=== PATIENT | male | born 1950 | race Caucasian/White ===

== ENCOUNTER 2016-11-20 10:07 | Inpatient (IN) | payer MEDICARE, MEDICAID ==
[2016-11-20 11:03] LABS: Anion Gap 12 mmol/L (-14-95); T. Carbon Dioxide 26.5 mmol/L (1.0-85.0); pH (Venous) 7.413 (7.35-7.45); vO2 Saturation-calc 58.6 % (0.0-100.0)
[2016-11-20 11:07] LABS: #Lymphocytes 1.2 thou/uL (1.20-3.40); #Monocytes 0.8 thou/uL (0.11-0.59); #Neutrophils 7.6 thou/uL (1.40-6.50); %Basophils 0.1 % (0.0-1.0); %Eosinophils 0.3 % (0.0-10.0); %Lymphocytes 12.8 % (21.0-51.0); Mean Platelet Volume 9.1 fL (7.4-10.4); Red Blood Cell (RBC) Count 4.66 mill/uL (4.70-6.10); White Blood Cell (WBC) Count 9.7 thou/uL (4.8-10.8)
[2016-11-20] MEDS ORDERED: Heparin 1,000 UNITS/ML VIAL ONE (11:11)
[2016-11-20] MEDS ORDERED: Piperacillin/Tazobactam 4.5 GM VIAL ONE ×2 (11:14→11:18)
[2016-11-20 11:23] LABS: Lactic Acid - Sepsis 2.5 mmol/L (0.5-2.2)
--- NOTE | 2016-11-20 11:25 | RAD ---
PORTABLE CHEST 1 VIEW: DATE: 11/20/16. TIME: 10:25 a.m. HISTORY: Dyspnea. FINDINGS: Comparison is made with the exam of 05/15/15. The heart size is normal. The aorta is tortuous. Increased prominence of the interstitial markings in the right lung base. This may represent a developing infiltrate. No pneumothorax, lobar consol idation, or pleural effusions are seen. POS: [facility]
[2016-11-20 11:27] LABS: ALT (SGPT) Less than 7 U/L (8-55); AST (SGOT) 6 U/L (5-34); Alkaline Phosphatase 66 U/L (40-150); Anion Gap 17 mmol/L (10-20); BUN (Urea Nitrogen) 38 mg/dL (8.4-25.7); Bilirubin, Total 0.6 mg/dL (0.2-1.2); Calc. Creatinine Clearance 0 mL/min (70-130); Calcium 9.9 mg/dL (7.8-10.44); Carbon Dioxide 25 mmol/L (23-31); Chloride 117 mmol/L (98-107); Estimated GFR-MDRD Greater than 90; Globulin 4.1 g/dL (2.4-3.5); Protein, Total 8.1 g/dL (5.8-8.1)
[2016-11-20 12:39] LABS: Bilirubin Small (Negative); Blood, Urine Negative (Negative); Glucose, Urine (Dipstick) Negative (Negative); Ketone, Urine 15 mg/dL (Negative)
[2016-11-20 12:40] LABS: Nitrite Negative (Negative); Protein, Urine (Dipstick) 100 mg/dL (Neg-Trace)
[2016-11-20 12:58] LABS: Bacteria/HPF None Seen HPF (None Seen)
[2016-11-20 13:09] LABS: Hyaline Casts/LPF 7-10 HYALINE CAST LPF (0-3 Hyaline); Renal Epithelial 0-3 HPF (0-3); Transitional Epithelial 0-3 HPF (0-3)
[2016-11-20 13:59] VITALS: BMI 17.6
[2016-11-20] MEDS ORDERED: Sodium Chloride 0.9% 1,000 ML IV SCH (13:59)
[2016-11-20] MEDS ORDERED: Ondansetron ODT 4 MG TAB SL PRN (13:59)
[2016-11-20] MEDS ORDERED: Ondansetron HCl/PF 4 MG/2 ML Vial IVP PRN (13:59)
[2016-11-20] MEDS ORDERED: Vancomycin HCl 1 GM in Premix Bag 1 BAG IVPB SCH (15:00)
[2016-11-20] MEDS ORDERED: Acetaminophen 325 MG TAB PO PRN (18:45)
[2016-11-20] MEDS: Sodium Chloride 0.9% 1,000 ML IV SCH (20:49)
[2016-11-20] MEDS: Lisinopril 10 MG TAB PO SCH (20:50)
[2016-11-20] MEDS: guaiFENesin ER 600 MG TAB PO SCH (20:50)
[2016-11-20] MEDS: Donepezil HCl 10 MG TAB PO SCH (20:50)
[2016-11-20] MEDS: Carbidopa/Levodopa 10-100 mg Tablet PO SCH (20:50)
[2016-11-20] MEDS: Pravastatin Sodium 20 MG TAB PO SCH (20:50)
[2016-11-21] MEDS: Sodium Chloride 0.9% 1,000 ML IV SCH ×2 (05:05→14:32)
[2016-11-21] MEDS: Vancomycin HCl 1 GM in Premix Bag 1 BAG IVPB SCH ×2 (05:05→17:39)
[2016-11-21 05:31] LABS: Anion Gap 13 mmol/L (10-20); BUN (Urea Nitrogen) 23 mg/dL (8.4-25.7); Calc. Creatinine Clearance 108 mL/min (70-130); Calcium 8.5 mg/dL (7.8-10.44); Carbon Dioxide 20 mmol/L (23-31); Chloride 116 mmol/L (98-107); Estimated GFR-MDRD Greater than 90
--- NOTE | 2016-11-21 05:50 | HP ---
DATE OF ADMISSION: 11/20/2016 CHIEF COMPLAINT ON ADMISSION: Pneumonia. HISTORY OF PRESENT ILLNESS: The patient is a 66-[facility]-old [facility] patient who has [facility] present at that [facility] for several years since his CVA. He was noted to have increasing lethargy, a t emperature up to 100, and a lot of chest congestion with a wet cough. When he was sent to the emerg ency room for further evaluation in the ER, a chest x-ray revealed an infiltrate, and even though th e patient said his baseline function elsewhere, he is being admitted for fpc-acquired pneum onia. There has been no nausea, vomiting, diarrhea, no temperature over a 100, without distress acc ording to the who is the historian. PAST MEDICAL HISTORY: Significant for the aforementioned CVA. He also has a history of hyperlipide darrion, hypertension, dementia with confusion, weakness on the right side since the stroke, COPD, insom sahra, arthritis, vitamin D deficiency, possible bipolar disorder, and anorexia. He also has anxiety associated with bipolar depression. PAST SURGICAL HISTORY: Includes right shoulder surgery, right ankle surgery. PAST PSYCHIATRIC HISTORY: As mentioned previously, bipolar disorder, depression prevalent with time frames that may also have schizophreniform features. He also has anxiety. SOCIAL HISTORY: He has been a daily alcohol drinker with severe tremors in the past due to previous alcohol use. There has been no recent alcohol use. He is a former drug user, mainly marijuana and he currently still uses 6 to 8 cigarettes a day. ALLERGIES: The patient has no known drug allergies. MEDICATIONS: On admission include lisinopril 20 mg a day, Aricept 10 mg at bedtime, Namenda 10 mg b .i.d., pravastatin 20 mg at bedtime, oxcarbazepine 300 mg b.i.d., Tylenol 325 mg q. 6 hours p.r.n. p ain or temperature elevation, Zoloft 200 mg q. day, Seroquel 200 mg at bedtime, Depakote 125 mg 8 ca psules once at bedtime, Sinemet 10/100 one t.i.d., Megace to stimulate his appetite and vitamin D2 5 0,000 units biweekly. REVIEW OF SYSTEMS: General: Hard to obtain due to the patient's inability to communicate. General ly, there has been increased lethargy and decreased responsiveness. HEENT: No new findings or trauma. Eyes, Nose, Throat: No new lesions, drainage, or pain. NECK: Supple, no masses, diminished range of motion. Chest: With loud, wet cough. No pain with inspirat ion, nontender to palpation. Heart: Regular rate and rhythm. There has been no palpitations or ch est pain identified. Abdomen: Scaphoid, unable to appreciate organomegaly. As previously mentione d, no vomiting or diarrhea. Genitourinary: Deferred. Extremities: With muscular wasting in upper and lower extremities and diminished range of motion noted especially on the right. Neurologic: Augustus evangelista is an alert and responsive at this time giving only short word answers and no trouble with faintin g. Skin: No new rashes. Genitourinary: No blood in urine or stool has been noted. PHYSICAL EXAMINATION: VITAL SIGNS: At the time of admission, blood pressure is 120/74, pulse is 86, respirations 14, temp erature 99, unable to appreciate pain scale at this time, O2 sat at 100%. GENERAL: This is a disabled, cachectic, elderly male with diminished responsiveness but is able to respond when addressed directly. HEENT: Significant for temporal wasting. Pupils equal, round, and reactive to light. TMs and nare s clear. Pharynx with poor dentition. Skin exfoliated in scalp and face. NECK: Supple. CHEST: With diminished breath sounds on the right. HEART: Regular rate and rhythm. ABDOMEN: Scaphoid with slight hepatomegaly. GENITOURINARY: Deferred. EXTREMITIES: Without clubbing or cyanosis. There is diminished muscular tone and development and l imited range of motion mainly on the right lower extremities. SKIN: Without acute rashes or lesions, although there has been no recent bathing and lot of dandruf f and skin sloughing. NEUROLOGIC: Diminished use of the right side upper and lower extremities. Diminished mentation, so me CVA. Deep tendon reflexes are hyperreflexic on the right and normal one on the left. Unable to appreciate any sensory exam at this time. LABORATORY WORK: WBC 9.4, hemoglobin 15.5, hematocrit 46.7, platelets 176. The UA is significant f or small ketones, otherwise, unremarkable. Remainder of his chest x-ray and lab evaluation is not a vailable due to the computer system being down. ASSESSMENT: 1. custodial-acquired pneumonia. 2. Mild dehydration. 3. Status post left hemispheric cerebrovascular accident with right-sided weakness in upper and low er extremities. 4. Significant psychiatric disorders - multiple. PLAN: IV antibiotics, scheduled neb treatments, mucolytics, and serial reevaluation.
[2016-11-21 06:02] LABS: #Lymphocytes 0.9 thou/uL (1.20-3.40); #Monocytes 0.5 thou/uL (0.11-0.59); #Neutrophils 6.1 thou/uL (1.40-6.50); %Basophils 0.1 % (0.0-1.0); %Eosinophils 0.5 % (0.0-10.0); %Lymphocytes 11.9 % (21.0-51.0); Hematocrit 39.5 % (42.0-52.0); Red Blood Cell (RBC) Count 3.73 mill/uL (4.70-6.10); White Blood Cell (WBC) Count 7.5 thou/uL (4.8-10.8)
[2016-11-21] MEDS: Carbidopa/Levodopa 10-100 mg Tablet PO SCH ×3 (08:10→21:50)
[2016-11-21] MEDS: Multivit, Therapeutic 1 TAB PO SCH (08:10)
[2016-11-21] MEDS: Lisinopril 10 MG TAB PO SCH ×2 (08:11→21:37)
[2016-11-21] MEDS: guaiFENesin ER 600 MG TAB PO SCH ×2 (08:11→21:38)
--- NOTE | 2016-11-21 08:14 | PRG ---
DATE OF SERVICE: 11/21/2016 SUBJECTIVE: The patient is awake, he is slightly confused. No family here at bedside. PHYSICAL EXAMINATION: VITAL SIGNS: Upon evaluation, blood pressure 134/70, pulse 70, respiration rate 18, he is afebrile. NECK: Supple with no increased JVP or carotid bruit. Carotid had good upstroke with no thyromegaly . COR: Regular rate and rhythm. CHEST: A few crackles. ABDOMEN: Soft, nontender with normoactive bowel sounds. No bruit or organomegaly. EXTREMITIES: No edema or cyanosis. Palpable pedal pulses. SKIN: There is no evidence of ulcer, lesion, or rash. NEUROLOGIC: He is awake, but slightly confused. LABORATORY DATA: H\T\H is 13.2 and 39.5, white cell blood count is 7.5. His potassium is 3. ASSESSMENT: 1. Pneumonia. 2. Hypokalemia. 3. Dementia. 4. History of cerebrovascular accident. 5. Chronic obstructive pulmonary disease. 6. Hypertension. PLAN: 1. We will go ahead and replace potassium. 2. We will continue IV fluids. 3. We will check a CBC and CMP and chest x-ray in the morning. 4. We will continue antibiotics as well.
[2016-11-21] MEDS ORDERED: Potassium Chloride 20 MEQ in Premix Bag 1 BAG IVPB SCH (08:30)
--- NOTE | 2016-11-21 14:38 | PQF ---
CLINICAL DOCUMENTATION IMPROVEMENT CLARIFICATION FORM: ICD-10 Updated PLEASE DO AN ADDENDUM TO THE PROGRESS NOTE WITH ANY DOCUMENTATION UPDATES OR ADDITIONS AND CARRY THROUGH TO DC SUMMARY. THANK YOU. DATE: 11/21 ATTN: DR. SHAMA SPICER Please exercise your independent, professional judgment in responding to the clarification form. Clinical indicators are provided on the bottom of this form for your review. For continuity of documentation, please document condition throughout progress notes and discharge summary. Thank you. Please check appropriate box(s): [ ] Hypernatremia (please specify etiology, if known) [ ] Diabetes Insipidus [ ] Other diagnosis [ x ] Unable to determine The following CLINICAL INDICATORS - SIGNS / SYMPTOMS are present in the medical record: SODIUM: 155 (11/20) 146 (11/21) RISK: DEHYDRATION PNEUMONIA DEMENTIA TREATMENT IVF (NS 11/20 - PRESENT) SERIAL LAB (COMP MET) THANK YOU! Sue (This form is maintained as a part of the permanent medical record) 2014 [employer]. All Rights Reserved Sue Murillo RN, BSN [email or web address] Office: [phone] [facility]
--- NOTE | 2016-11-21 14:49 | PQF ---
CLINICAL DOCUMENTATION IMPROVEMENT CLARIFICATION FORM: ICD-10 Updated PLEASE DO AN ADDENDUM TO THE PROGRESS NOTE WITH ANY DOCUMENTATION UPDATES OR ADDITIONS AND CARRY THROUGH TO DC SUMMARY. THANK YOU. DATE: 11/21 ATTN: DR. SHAMA SPICER Please provide a response below if a more specific term indicating a diagnosis and/or acuity level for this condition can be identified. Please exercise your independent, professional judgment in responding to the clarification form. Please check appropriate box(s): [ ] Aspiration Pneumonia [ ] Empirically treating Gram Negative Pneumonia [ ] Empirically treating Anaerobic Pneumonia [ ] Pneumonia secondary to (specify organism / underlying disease) [ ] Bronchopneumonia [ ] Pneumonia of unknown etiology [ x ] Other diagnosis ____pneumonia, halfway acquired [ ] Unable to determine The following CLINICAL INDICATORS - SIGNS / SYMPTOMS are present in the medical record: PHYSICIAN H&P DOCUMENTATION 11/20: ASSESSMENT: SHELTER-ACQUIRED PNEUMONIA PROGRESS NOTE 11/21 - ASSESSMENT: 1. PNEUMONIA CXR 11/20: INCREASED PROMINENCE OF THE INTERSTITIAL MARKINGS IN THE R LUNG BASE. THIS MAY REPRESENT A DEVELOPING INFILTRATE. RISKS: DEMENTIA COPD CURRENT TOBACCO USE TREATMENTS: IV ANTIBIOTICS (LEVAQUIN BEGINNING 11/21; VANCOMYCIN 11/20 - PRESENT) SPEECH CONSULT THANK YOU! Sue (This form is maintained as a part of the permanent medical record) 2015 [employer]. All Rights Reserved Sue Murillo RN, BSN [email or web address] Office: [phone] [facility]
[2016-11-21] MEDS: Donepezil HCl 10 MG TAB PO SCH (21:37)
[2016-11-21] MEDS: Pravastatin Sodium 20 MG TAB PO SCH (21:38)
[2016-11-22] MEDS: Sodium Chloride 0.9% 1,000 ML IV SCH (00:10)
[2016-11-22 05:52] LABS: #Eosinphils 0.1 thou/uL (0.0-0.7); #Monocytes 0.6 thou/uL (0.11-0.59); #Neutrophils 5.1 thou/uL (1.40-6.50); %Basophils 0.3 % (0.0-1.0); %Eosinophils 1.2 % (0.0-10.0); %Lymphocytes 14.8 % (21.0-51.0); %Monocytes 8.8 % (0.0-10.0); Hematocrit 37.8 % (42.0-52.0); Mean Platelet Volume 9.7 fL (7.4-10.4); Red Blood Cell (RBC) Count 3.49 mill/uL (4.70-6.10); White Blood Cell (WBC) Count 6.8 thou/uL (4.8-10.8)
[2016-11-22] MEDS: Vancomycin HCl 1 GM in Premix Bag 1 BAG IVPB SCH ×3 (06:04→22:10)
[2016-11-22 06:17] LABS: Vancomycin, Trough 9.3 ug/mL
[2016-11-22 06:22] LABS: ALT (SGPT) 8 U/L (8-55); AST (SGOT) 21 U/L (5-34); Alkaline Phosphatase 46 U/L (40-150); Anion Gap 11 mmol/L (10-20); BUN (Urea Nitrogen) 14 mg/dL (8.4-25.7); Bilirubin, Total 0.5 mg/dL (0.2-1.2); Calc. Creatinine Clearance 108 mL/min (70-130); Calcium 8.1 mg/dL (7.8-10.44); Carbon Dioxide 20 mmol/L (23-31); Chloride 115 mmol/L (98-107); Estimated GFR-MDRD Greater than 90; Globulin 2.7 g/dL (2.4-3.5); Protein, Total 5.4 g/dL (5.8-8.1)
[2016-11-22] MEDS ORDERED: Potassium Chloride 20 MEQ TAB PO SCH ×2 (06:30→08:15)
[2016-11-22] MEDS ORDERED: NS 0.9% w/ 20 MEQ KCL 1,000 ML IV SCH (06:45)
[2016-11-22] MEDS ORDERED: Sodium Chloride 0.9% 1,000 ML IV SCH (08:00)
--- NOTE | 2016-11-22 08:12 | RAD ---
SINGLE VIEW OF THE CHEST: Comparison: 11-20-16 History: Pneumonia. FINDINGS: Single view of the chest shows a normal sized cardiomediastinal silhouette. There is an infiltrate a long the right heart border. No left sided infiltrates are seen. No pleural effusion is seen. IMPRESSION: Right sided infiltrate. This may be in the right middle lobe or lower lobe. POS: [facility]
[2016-11-22] MEDS: NS 0.9% w/ 20 MEQ KCL 1,000 ML IV SCH ×2 (08:56→18:23)
[2016-11-22] MEDS: Multivit, Therapeutic 1 TAB PO SCH (09:05)
[2016-11-22] MEDS: guaiFENesin ER 600 MG TAB PO SCH ×2 (09:05→22:10)
[2016-11-22] MEDS: Lisinopril 10 MG TAB PO SCH ×2 (09:05→22:09)
[2016-11-22] MEDS: Carbidopa/Levodopa 10-100 mg Tablet PO SCH ×3 (09:05→22:10)
[2016-11-22] MEDS: Donepezil HCl 10 MG TAB PO SCH (22:09)
[2016-11-22] MEDS: Pravastatin Sodium 20 MG TAB PO SCH (22:10)
[2016-11-23] MEDS ORDERED: Vancomycin HCl 1.5 GM in Sodium Chloride 0.9% 250 ML 300 ML IVPB SCH (07:00)
[2016-11-23] MEDS: NS 0.9% w/ 20 MEQ KCL 1,000 ML IV SCH ×4 (07:20→18:05)
[2016-11-23] MEDS: Vancomycin HCl 1 GM in Premix Bag 1 BAG IVPB SCH ×3 (07:21→16:59)
[2016-11-23 07:46] LABS: #Eosinphils 0.2 thou/uL (0.0-0.7); #Monocytes 0.6 thou/uL (0.11-0.59); #Neutrophils 5.1 thou/uL (1.40-6.50); %Basophils 0.6 % (0.0-1.0); %Lymphocytes 14.5 % (21.0-51.0); %Monocytes 9.1 % (0.0-10.0); Hematocrit 38.3 % (42.0-52.0); Red Blood Cell (RBC) Count 3.66 mill/uL (4.70-6.10); White Blood Cell (WBC) Count 7.1 thou/uL (4.8-10.8)
[2016-11-23] MEDS ORDERED: ALPRAZolam 0.25 MG TAB PO SCH (08:00)
--- NOTE | 2016-11-23 08:06 | PRG ---
DATE OF SERVICE: 11/23/2016 The patient does have some tremors. He is ready to go back to the facility. He is waiting to have his PICC line today and he is also going to have a modified barium swallow. PHYSICAL EXAMINATION: GENERAL: He is awake and alert. VITAL SIGNS: Blood pressure 144/85, pulse 80, respiration rate 18. He is afebrile. NECK: Supple with no increased JVP or carotid bruit. Carotid had good upstroke with no thyromegaly . COR: Regular rate and rhythm. CHEST: Symmetrical. Clear to auscultation and percussion. ABDOMEN: Soft, nontender with normoactive bowel sounds. No bruit or organomegaly. EXTREMITIES: No edema or cyanosis. He had palpable pedal pulses. SKIN: There is no evidence of ulcer lesion, or rash. NEUROLOGIC: He is awake. LABORATORY DATA: His CBC is normal. His CMP showed a potassium to be 2.7. ASSESSMENT: 1. Pneumonia. 2. Hypokalemia. 3. Dementia. 4. Anxiety disorder. 5. Parkinson's. 6. Dysphagia. PLAN: 1. The patient will have modified barium swallow today. 2. We will replace potassium. 3. We will wait for the PICC line. Unfortunately, I was going to [facility]; however, I would like to get his potassium up before I do it, so recheck potassium later.
[2016-11-23 08:08] LABS: Vancomycin, Trough 15.4 ug/mL
[2016-11-23 08:09] LABS: Anion Gap 11 mmol/L (10-20); BUN (Urea Nitrogen) 10 mg/dL (8.4-25.7); Calc. Creatinine Clearance 112 mL/min (70-130); Calcium 8.2 mg/dL (7.8-10.44); Carbon Dioxide 20 mmol/L (23-31); Chloride 116 mmol/L (98-107); Estimated GFR-MDRD Greater than 90
[2016-11-23] MEDS: Carbidopa/Levodopa 10-100 mg Tablet PO SCH ×3 (08:55→22:41)
[2016-11-23] MEDS: guaiFENesin ER 600 MG TAB PO SCH ×2 (08:55→22:41)
[2016-11-23] MEDS: Lisinopril 10 MG TAB PO SCH ×2 (08:56→22:42)
[2016-11-23] MEDS: Multivit, Therapeutic 1 TAB PO SCH (08:56)
[2016-11-23] MEDS: Potassium Chloride 20 MEQ in Sodium Chloride 0.9% 250 ML 250 ML IVPB SCH ×2 (11:57→14:53)
--- NOTE | 2016-11-23 12:57 | SPC ---
ULTRASOUND GUIDED LEFT UPPER EXTREMITY PICC LINE PLACEMENT: HISTORY: Pneumonia. Sepsis. COMPARISON: None. EXPOSURE: 0.4 minutes with 1347 mGy per cm2. TECHNIQUE: Consent obtained to perform a left upper extremity PICC line placement with ultrasound guidance. e left arm was prepped and draped in a sterile fashion, and 1% Lidocaine, buffered with sodium bicar bonate, was used for local anesthesia. Under ultrasound guidance, A micropuncture needle was used t o cannulate the basilic vein. A 0.018 guide wire was advanced through the needle, to the level of t he superior vena cava/right atrial junction. The tract was dilated. A single lumen 5 [place]ian cathet er was advanced over the wire. The wire was removed. The catheter does flush and aspirate without difficulty. Trim length is 47 cm. IMPRESSION: Technically successful left upper extremity peripherally inserted central catheter line placement wi ultrasound guidance. POS: [facility]
--- NOTE | 2016-11-23 13:01 | RAD ---
MODIFIED BARIUM SWALLOW: History: Dysphagia, evaluate for aspiration. Dysphagia oropharyngeal phase. Feeding difficulty. Comparison: None. Exposure: 1 minute, 2.18 mGy*cm\S\2. FINDINGS: In frontal of speech pathology, patient was administered thin liquid, nectar thick, honey thick, and puree consistencies. There is delay in triggering of the swallowing mechanism. There is premature s pillage with all the aforementioned consistencies. Spillage is in the vallecula and pyriform sinuses . IMPRESSION: Please refer to speech pathology report for feeding recommendation. POS: [facility]
[2016-11-23] MEDS: Donepezil HCl 10 MG TAB PO SCH (22:41)
[2016-11-23] MEDS: Pravastatin Sodium 20 MG TAB PO SCH (22:41)
[2016-11-24] MEDS: Vancomycin HCl 1 GM in Premix Bag 1 BAG IVPB SCH ×2 (01:38→09:16)
--- NOTE | 2016-11-24 07:55 | PRG ---
DATE OF SERVICE: 11/24/2016 SUBJECTIVE: He is awake. He is slightly confused. There is no family at bedside. PHYSICAL EXAMINATION: VITAL SIGNS: Blood pressure is 130/80, pulse 100, respirations 18. NECK: Supple with no increased JVP or carotid bruit. Carotid had good upstroke. COR: Regular rate and rhythm. CHEST: Symmetrical. Clear to auscultation and percussion. ABDOMEN: Soft, nontender with normoactive bowel sounds. No bruit or organomegaly. EXTREMITIES: No edema or cyanosis. He had palpable pedal pulses. SKIN: There is no evidence of ulcer lesion, or rash. NEUROLOGIC: He is awake and slightly confused. ASSESSMENT: 1. Pneumonia. 2. Hypokalemia, improved. 3. Dementia. PLAN: The patient will go to [facility] on vancomycin. We will follow up with a potassium lab and p eak and trough at [facility].
[2016-11-24] MEDS: guaiFENesin ER 600 MG TAB PO SCH (09:14)
[2016-11-24] MEDS: Lisinopril 10 MG TAB PO SCH (09:15)
[2016-11-24] MEDS: Carbidopa/Levodopa 10-100 mg Tablet PO SCH (09:15)
[2016-11-24] MEDS: Multivit, Therapeutic 1 TAB PO SCH (09:15)
[2016-11-24] MEDS: NS 0.9% w/ 20 MEQ KCL 1,000 ML IV SCH (09:17)
[2016-11-24 11:34] VITALS: BP 129/83; TEMP 97.9
--- NOTE | 2016-11-27 14:40 | DIS ---
FINAL DIAGNOSES: 1. Pneumonia. 2. Anxiety disorder. 3. Dementia. 4. History of cerebrovascular accident. 5. Hypokalemia. COMPLICATIONS: None. PROCEDURES: On 11/23/2016, the patient had a left upper extremity PICC line. CONSULTANTS: None. HOSPITAL COURSE: This is a pleasant gentleman from [facility] who presents with fever a nd shortness of breath. He was found to have pneumonia and the patient was started on IV antibiotic s. He also was having some difficulty swallowing and underwent a modified speech swallow. This swa llow evaluation showed dysphagia. Our staff did speak with the and the did not want to go ahead with PEG, but did want to take the risk of putting him on a diet despite possible complicatio ns. The patient underwent a PICC line and tolerated the procedure well. The patient's chest x-ray follow up that he had on this showed a right-sided infiltrate. His lab showed his CBC to be no rmal. His potassium had to be replenished from 2.7 and it got up to 3.3. The patient's BUN and cre atinine were normal. The patient's hospital course was unremarkable. Once he got his PICC line, it was felt he could go back to [facility]; therefore, he was transferred on 11/24/2016 to [facility] in stable condition. He would be on the diet recommended by speech, which I believe is pureed with ho miguel ángel thick consistency and to keep the patient head of bed up at 45 degrees. DISCHARGE MEDICATIONS: 1. Trileptal 300 mg b.i.d. 2. Zoloft 200 mg every day. 3. Seroquel 200 mg every day. 4. Pravastatin 20 mg every day. 5. Namenda 10 mg every day. 6. Megace 40 mg every day. 7. Lisinopril 20 mg every day. 8. Vitamin D2 50,000 units every day. 9. Aricept 10 mg every day. 10. Depakote 125 mg at bedtime. 11. Sinemet 10 mg t.i.d. 12. Tylenol p.r.n. 13. Potassium 20 mEq every day. 14. Vancomycin 1 gram q.24 hours with a peak and trough third dose. Dr. Calix would be the attending and see the patient accordingly. This is ЮЛИЯ Khan-C dictating for Dr. Abundio Calix.
== END 2016-11-24 11:32 | DRG 194 ==
LOC: ERS 10:07 → T4-B 12:19
PROVIDERS: ADMIT Specialist; ATTEND Specialist
PROC: 02HV33Z Insertion of Infusion Device into Superior Vena Cava, Percutaneous Approach (ICD-10-PCS; principal; 2016-11-23)
PROC: B548ZZA Ultrasonography of Superior Vena Cava, Guidance (ICD-10-PCS; 2016-11-23)
DX: J18.9 Pneumonia, unspecified organism (principal); I69.351 Hemiplegia and hemiparesis following cerebral infarction affecting right dominant side; G20 Parkinson's disease; Z68.1 Body mass index [BMI] 19.9 or less, adult; J44.9 Chronic obstructive pulmonary disease, unspecified; Y95 Nosocomial condition; E78.5 Hyperlipidemia, unspecified; I10 Essential (primary) hypertension; G47.00 Insomnia, unspecified; M19.90 Unspecified osteoarthritis, unspecified site; E55.9 Vitamin D deficiency, unspecified; R63.0 Anorexia; F31.9 Bipolar disorder, unspecified; F41.9 Anxiety disorder, unspecified; F32.9 Major depressive disorder, single episode, unspecified; F10.21 Alcohol dependence, in remission; E86.0 Dehydration; E87.6 Hypokalemia; F02.80 Dementia in other diseases classified elsewhere, unspecified severity, without behavioral disturbance, psychotic disturbance, mood disturbance, and anxiety; R13.10 Dysphagia, unspecified; F17.210 Nicotine dependence, cigarettes, uncomplicated; F12.21 Cannabis dependence, in remission
CPT/HCPCS: 36415; 36569; 51701; 71010; 74230; 80048; 80053; 80202; 81003; 81015; 82306; 82330; 82803; 83605; 83880; 85025; 87040; 87086; 93005; 94640; 96361; 96365; A4216; C1751; G8996-GN-CM; G8997-GN-CJ; G8997-GN-CK; J1644; J1956; J2543; J3370; J3480; J7050; J7620

== ENCOUNTER 2016-11-30 10:27 | Emergency (ER) | payer MEDICARE, MEDICAID ==
--- NOTE | 2016-11-30 12:03 | RAD ---
CHEST 1 VIEW: HISTORY: Altered mental status. Emergency exam. Pneumonia. COMPARISON: Chest 1 view 11/22/16. FINDINGS: PICC is in place in good position. Right lower lobe airspace opacity is similar. The left lung is relatively clear. No pneumothorax. Cardiac silhouette and mediastinal contours are similar. IMPRESSION: 1. PICC in good position. 2. Right lower lobe airspace opacity concerning for infection is similar. 3. Old right clavicular injury. POS: [facility]
[2016-11-30 13:19] LABS: #Basophils 0.1 thou/uL (0.0-0.2); #Eosinphils 0.1 thou/uL (0.0-0.7); #Lymphocytes 1.3 thou/uL (1.20-3.40); #Monocytes 0.8 thou/uL (0.11-0.59); #Neutrophils 11.1 thou/uL (1.40-6.50); %Basophils 0.4 % (0.0-1.0); %Eosinophils 0.4 % (0.0-10.0); %Lymphocytes 9.4 % (21.0-51.0); %Monocytes 6.1 % (0.0-10.0); Hematocrit 38.7 % (42.0-52.0); White Blood Cell (WBC) Count 13.3 thou/uL (4.8-10.8)
[2016-11-30 13:34] LABS: Bilirubin Negative (Negative); Blood, Urine Trace (Negative); Glucose, Urine (Dipstick) Negative (Negative); Ketone, Urine Trace mg/dL (Negative); Nitrite Negative (Negative); Protein, Urine (Dipstick) Negative (Neg-Trace)
[2016-11-30 13:41] LABS: Bacteria/HPF None Seen HPF (None Seen); Hyaline Casts/LPF 0-3 HYALINE CAST LPF (0-3 Hyaline); Squamous Epithelial 0-3 HPF (0-3); WBC/HPF 0-3 HPF (0-3)
[2016-11-30 13:44] LABS: ALT (SGPT) 8 U/L (8-55); AST (SGOT) 13 U/L (5-34); Alkaline Phosphatase 68 U/L (40-150); Anion Gap 14 mmol/L (10-20); BUN (Urea Nitrogen) 17 mg/dL (8.4-25.7); Bilirubin, Total 0.4 mg/dL (0.2-1.2); Calc. Creatinine Clearance 0 mL/min (70-130); Calcium 8.8 mg/dL (7.8-10.44); Carbon Dioxide 22 mmol/L (23-31); Chloride 116 mmol/L (98-107); Estimated GFR-MDRD Greater than 90; Globulin 3.5 g/dL (2.4-3.5); Protein, Total 6.7 g/dL (5.8-8.1)
[2016-11-30 13:45] LABS: Macrocytosis SLIGHT = 6-15 cells (100X) (0-5/hpf); Polychromasia SLIGHT = 2-3 cells (100X) (0-2/hpf)
== END 2016-11-30 14:53 | disposition home or self-care (01) ==
LOC: ERS 10:27
DX: J18.9 Pneumonia, unspecified organism (principal); E86.0 Dehydration; E78.5 Hyperlipidemia, unspecified; I10 Essential (primary) hypertension; I69.351 Hemiplegia and hemiparesis following cerebral infarction affecting right dominant side; J44.9 Chronic obstructive pulmonary disease, unspecified; F03.90 Unspecified dementia, unspecified severity, without behavioral disturbance, psychotic disturbance, mood disturbance, and anxiety; G47.00 Insomnia, unspecified; F41.9 Anxiety disorder, unspecified; F31.9 Bipolar disorder, unspecified; F20.9 Schizophrenia, unspecified; F17.210 Nicotine dependence, cigarettes, uncomplicated; Z79.899 Other long term (current) drug therapy
CPT/HCPCS: 36415; 51701; 71010; 80053; 81003; 81015; 83605; 85025; 87040; 87086; 93005; 96360; 96361